=== PATIENT | female | born 2000 ===

== ENCOUNTER 2023-04-02 19:15 | Outpatient (REF) | payer MEDICAID, SELFPAY ==
[2023-04-02 20:03] LABS: Appearance Urine Turbid; Color Urine Yellow; Glucose Urine UA Negative (Negative); Leukocyte Esterase Urine Large (3+) (Negative); Nitrite Urine Negative (Negative); PH 5.5 (5.0-9.0); UMIC TRIGGER UACC YES; Urine Blood Trace (Negative); Urine Ketones Negative (Negative); Urine Protein Negative (Neg-Trace)
[2023-04-02 20:19] LABS: Bacteria Urine 1+ (None Seen); Hyaline Casts Urine 0-2 /LPF (0-2); UACC Culture Trigger YES
[2023-04-03 03:19] LABS: CT PCR NOT DETECTED (Not Detect.); NG PCR NOT DETECTED (Not Detect.)
[2023-04-03 09:38] LABS: BV Int Neg Control Negative (Negative); BV Int Pos Control Positive (Positive)
== END 2023-04-02 19:16 | disposition home or self-care (01) ==
LOC: HO.HHCLNP 19:15
PROVIDERS: Visit Provider Family Medicine
DX: N89.8 Other specified noninflammatory disorders of vagina (principal)
CPT/HCPCS: 0353U; 81001; 81003; 87086; 87480; 87510; 87660

== ENCOUNTER 2023-05-13 15:16 | Outpatient (REF) | payer MEDICAID, SELFPAY ==
[2023-05-14 04:59] LABS: CT PCR NOT DETECTED (Not Detect.); NG PCR NOT DETECTED (Not Detect.)
== END 2023-05-13 15:17 | disposition home or self-care (01) ==
LOC: HO.CHCLNP 15:16
PROVIDERS: Visit Provider Internal Medicine
DX: N89.8 Other specified noninflammatory disorders of vagina (principal)
CPT/HCPCS: 0353U; 36415; 81513

== ENCOUNTER 2023-06-05 16:05 | Outpatient (REF) | payer MEDICAID, SELFPAY | END 2023-06-05 16:06 | disposition home or self-care (01) | LOC: HO.CHCLNP 16:05 | PROVIDERS: Visit Provider Family Medicine | DX: N76.0 Acute vaginitis (principal) | CPT/HCPCS: 0353U; 81513 ==

== ENCOUNTER 2024-02-01 09:23 | Outpatient (REF) | payer MEDICAID, SELFPAY ==
[2024-02-01 15:39] LABS: HCG Quantitative 18167 mIU/mL
== END 2024-02-01 09:24 | disposition home or self-care (01) ==
LOC: HO.CHCLDS 09:23
PROVIDERS: Visit Provider Pediatrics
DX: N92.6 Irregular menstruation, unspecified (principal)
CPT/HCPCS: 36415; 84702

== ENCOUNTER 2024-02-19 15:51 | Outpatient (REF) | payer MEDICAID, SELFPAY ==
[2024-02-19 18:06] LABS: Appearance Urine Clear; Color Urine Yellow; Glucose Urine UA Negative (Negative); Leukocyte Esterase Urine Negative (Negative); Nitrite Urine Negative (Negative); UMIC TRIGGER UACC YES; Urine Blood Trace (Negative); Urine Ketones Negative (Negative); Urine Protein Negative (Neg-Trace)
[2024-02-19 18:08] LABS: Bacteria Urine 1+ (None Seen); Hyaline Casts Urine 0-2 /LPF (0-2); RBC Urine 0-2 /HPF (0-2); WBC Urine 0-5 /HPF (0-5)
[2024-02-20 11:17] LABS: Bacterial Vaginosis PCR POSITIVE (Negative); Candida Group PCR NOT DETECTED (Not Detect); Candida glab krusei PCR NOT DETECTED (Not Detect); Trichomonas vaginalis PCR NOT DETECTED (Not Detect)
[2024-02-20 11:48] LABS: CT PCR NOT DETECTED (Not Detect.); NG PCR NOT DETECTED (Not Detect.)
== END 2024-02-19 15:52 | disposition home or self-care (01) ==
LOC: HO.CHCLNP 15:51
PROVIDERS: Visit Provider Registered Nurse
DX: N89.8 Other specified noninflammatory disorders of vagina (principal); R39.9 Unspecified symptoms and signs involving the genitourinary system
CPT/HCPCS: 0352U; 0353U; 81001